=== PATIENT | male | born 1990 | race Caucasian/White ===

== ENCOUNTER 2018-11-25 22:02 | Emergency (ER) | payer OTHER ==
[2018-11-25 22:19] VITALS: BP 106/74; PULSE 90; TEMP 99; O2SAT 99
--- NOTE | 2018-11-25 23:53 | C.PDOC ---
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 Denies weakness or numbness. Time Seen by Provider: 11/25/18 22:28 Chief Complaint (Nursing): Lower Extremity Problem/Injury History Per: Patient History/Exam Limitations: no limitations Onset/Duration Of Symptoms: Mins Current Symptoms Are (Timing): Still Present - Ankle/Foot Description Of Injury: Twisted Past Medical History Reviewed: Historical Data, Nursing Documentation, Vital Signs Vital Signs: Last Vital Signs Temp 99 F 11/25/18 22:15 Pulse 90 11/25/18 22:15 Resp 14 11/25/18 22:15 BP 106/74 11/25/18 22:15 Pulse Ox 99 11/25/18 22:15 Primary Care Provider: FAMILY PROVIDER,NO Family History: States: Unknown Family Hx - Social History Hx Alcohol Use: Yes Hx Substance Use: No - Immunization History Hx Tetanus Toxoid Vaccination: No Hx Influenza Vaccination: No Hx Pneumococcal Vaccination: No Review Of Systems Musculoskeletal: Positive for: Other (left ankle pain) Neurological: Negative for: Weakness, Numbness Physical Exam - Physical Exam Appears: Non-toxic Skin: Normal Color, Warm Head: Atraumatic, Normacephalic Eye(s): bilateral: Normal Inspection Extremity: Normal ROM (x4), Capillary Refill (<2 seconds), Other (Tenderness to medial and lateral left malleolus) Pulses: Left Dorsalis Pedis: Normal, Right Dorsalis Pedis: Normal Neurological/Psych: Oriented x3, Normal Speech, Normal Motor, Normal Sensation Gait: Steady ED Course And Treatment O2 Sat by Pulse Oximetry: 99 (Room air) Pulse Ox Interpretation: Normal - Other Rad Right ankle x-ray X-Ray: Interpreted by Me, Viewed By Me Interpretation: No acute fracture or dislocation. Soft tissue swelling. Progress Note: Left ankle x-ray negative for fracture or dislocation, motrin given for pain, patient placed in jayne wrap for support, given crutches with instructions for nonweight bearing, and advised to follow up with ortho. Disposition Discussed With : ankle Counseled Patient/Family Regarding: Diagnosis, Need For Followup, Rx Given - Disposition Referrals: Orthopedic Clinic at [Outside] Podiatry Clinic [Outside] Shahzad Clarke III, MD [Staff Provider] - Disposition: HOME/ ROUTINE Disposition Time: 23:51 Condition: STABLE Additional Instructions: Please follow up with Orthopedist Leg elevation Apply ICE to area Motrin for pain Return to ER if worse Prescriptions: Ibuprofen [Motrin] 600 mg PO Q6H #30 tab Instructions: Ankle Sprain (DC) Forms: [employer] (Azeri) - Clinical Impression Clinical Impression: Left ankle sprain - PA / ASSISTANT EDUCATION DIRECTOR / Resident Statement MD/DO has reviewed & agrees with the documentation as recorded. - Scribe Statement The provider has reviewed the documentation as recorded by the Scribvilma Morales All medical record entries made by the Diazibvilma were at my direction and personally dictated by me. I have reviewed the chart and agree that the record accurately reflects my personal performance of the history, physical exam, medical decision making, and the department course for this patient. I have also personally directed, reviewed, and agree with the discharge instructions and disposition.
[2018-11-25 23:59] VITALS: RESP 20
--- NOTE | 2018-11-26 12:09 | RAD ---
Date of service: 11/25/2018 PROCEDURE: Right Ankle Radiographs. HISTORY: pain to left ankle s/p injury COMPARISON: None available. TECHNIQUE: 3 views obtained. FINDINGS: BONES: Bone alignment and mineralization are normal. There is no acute displaced fracture or bone destruction. JOINTS: Normal. No osteoarthritis. Ankle mortise maintained. Talar dome intact SOFT TISSUES: Normal. OTHER FINDINGS: None. IMPRESSION: No acute fracture or dislocation.
== END 2018-11-25 23:58 | disposition home or self-care (01) ==
LOC: C.ER 22:02
DX: S93.402A Sprain of unspecified ligament of left ankle, initial encounter (principal); X50.9XXA Other and unspecified overexertion or strenuous movements or postures, initial encounter